=== PATIENT | male | born 1985 | race Caucasian/White ===

== ENCOUNTER 2021-02-15 19:20 | Emergency (ER) | payer SELFPAY ==
[~2021-02-15] VITALS: Ht 170 cm; Wt 54.5 kg
[~2021-02-15 19:20] MED LIST: ACHYD1T PO; CHLO500T2 PO; FAMO20TA5 PO; SUCR1TAB23 PO; TRAM50TA2 PO; TRAZ-144 PO
--- NOTE | 2021-02-15 20:19 | Diagnostic Imaging Report ---
EXAMINATION: Chest 1 view. HISTORY: Cough. COMPARISON: None available. FINDINGS: Heart size and pulmonary vasculature are normal. There are patchy airspace opacities within the left lung base. No pleural effusion or pneumothorax. The osseous structures are intact. IMPRESSION: Left basilar patchy airspace opacities which can be seen with atelectasis or pneumonia in the appropriate clinical setting. Dictated by: Dictated on workstation # [id number]
[2021-02-15] MEDS ORDERED: DOXY-227 PO (20:32)
--- NOTE | 2021-02-15 20:33 | ED Cough/URI ---
General Chief Complaint: Cough/Cold/Flu Symptoms Stated Complaint: L SIDE PAIN/TROUBLE BREATHING/SINUS INFECTION Nursing Triage Note: PT PRESENTS C/O CONGESTION AND CVOUGH FOR 1-2 WEEKS. STATES HE WAS SEEN BY [facility] AND SWABBED NEGATIVE FOR COVID THIS THURSDAY. PT STATES HE HAS A HX OF SINUS ISSUES AND WAS TOLD IN 2017 HE HAS REACTIVE AIRWAY DISEASE, USES AN IHNALER. USED ONCE TODAY. PT VERBALIZES LEFT SIDED CHEST PAIN THAT ONLY OCCURS WITH COUGHING OR DEEP INHALATION Source: patient Exam Limitations: no limitations History of Present Illness Date Seen by Provider: Feb 15, 2021 Time Seen by Provider: 20:28 Initial Comments To ER with 1 to 2-week history of left lower chest wall pain worse with deep breathing. Nasal congestion as well. Tested negative for Covid on Thursday. Timing/Duration: week Severity/Quality: dry cough Associated Symptoms: cough Allergies and Home Medications Allergies Uncoded Allergies: PCN; AMOXICILLIN; ALL CILLINS (Allergy, Unknown, 07/05/14) Patient Home Medication List Home Medication List Reviewed: Yes Chlorzoxazone (Parafon Forte Dsc) 500 Mg Tablet, 500 MG PO BID, (Reported) Entered as Reported by: KUMAR HERNÁNDEZ on 07/11/14 1219 Hydrocodone Bit/Acetaminophen (HYDROcodone/APAP 10/325 TABLET) 1 Each Tablet, 1 TAB PO BID, (Reported) Entered as Reported by: LENA DEWITT on 06/25/15 1013 Trazodone Hcl (Trazodone Hcl) 50 Mg Tablet, 50 MG PO HS, (Reported) Entered as Reported by: KUMAR HERNÁNDEZ on 07/11/14 1219 Review of Systems Review of Systems Constitutional: see HPI EENTM: see HPI Respiratory: see HPI, cough Cardiovascular: no symptoms reported Genitourinary: no symptoms reported Musculoskeletal: no symptoms reported Skin: no symptoms reported Psychiatric/Neurological: No Symptoms Reported Hematologic/Lymphatic: No Symptoms Reported Immunological/Allergic: no symptoms reported Past Rdbgajo-Rvinio-Txicmw Hx Patient Social History Tobacco Use?: Yes Tobacco type used: Cigarettes Smoking Status: Current Everyday Smoker Substance use?: No Immunizations Up To Date Influenza Vaccine Up-to-Date: No; Not Current Physical Exam Vital Signs - First Documented 02/15/21 19:28 Temp 36.3 Pulse 92 Resp 18 B/P (MAP) 107/69 (82) Pulse Ox 97 O2 Delivery Room Air Capillary Refill : Less Than 3 Seconds Height: 5'7.00" Weight: 124lbs. oz. 56.637937fv; 18.00 BMI Method: General Appearance: WD/WN, no apparent distress, thin Eyes: Bilateral Eye Normal Inspection HEENT: PERRL/EOMI, normal ENT inspection, TMs normal Neck: non-tender, full range of motion Respiratory: no respiratory distress, no accessory muscle use Cardiovascular: regular rate, rhythm, no murmur Gastrointestinal: normal bowel sounds, non tender, soft Neurologic/Psychiatric: alert, normal mood/affect, oriented x 3 Skin: normal color, warm/dry Progress/Results/Core Measures Suspected Sepsis SIRS Temperature: Pulse: 92 Respiratory Rate: 18 Blood Pressure 107 /69 Mean: 82 Results/Orders My Orders Orders - MITZY AGEE APRN Chest 1 View, Ap/Pa Only (02/15/21 19:58) Vital Signs/I&O 02/15/21 19:28 Temp 36.3 Pulse 92 Resp 18 B/P (MAP) 107/69 (82) Pulse Ox 97 O2 Delivery Room Air Capillary Refill : Less Than 3 Seconds Blood Pressure Mean: 82 Departure Impression Primary Impression: Pneumonia Disposition: 01 HOME, SELF-CARE Condition: Stable Departure-Patient Inst. Decision time for Depature: 20:28 Referrals: [facility] [place] [facility] [place] Primary Care Physician Patient Instructions: Pneumonia, Adult (DC) Add. Discharge Instructions: 1. Tylenol and ibuprofen for pain or fever control 2. Take the antibiotics as directed 3. Return to ER for any worsening 4. See your doctor next week for follow-up. All discharge instructions reviewed with patient and/or family. Voiced understanding. Scripts Doxycycline Hyclate (Doxycycline Hyclate) 100 Mg Tablet. 100 MG PO BID, #14 TAB Prov: MITZY AGEE APRN 02/15/21 MITZY AGEE APRN Feb 15, 2021 20:33
[2021-02-15 20:38] VITALS: BP 103/69
[2021-02-15] MEDS ORDERED: DOXYCYCLINE 100 MG (VIBRAMYCIN) TABLET PO SCH (20:45)
[2021-02-15] MEDS ORDERED: IBUPROFEN 800 MG (MOTRIN) TAB PO ONE (20:45)
== END 2021-02-15 20:44 | disposition home or self-care (01) ==
LOC: EDUNIT# 19:20 → ER 19:23
DX: J18.9 Pneumonia, unspecified organism (principal); F17.210 Nicotine dependence, cigarettes, uncomplicated; Z20.822 Contact with and (suspected) exposure to COVID-19
CPT/HCPCS: 71045